=== PATIENT | male | born 1955 | race African-American/Black ===

== ENCOUNTER 2017-05-12 08:03 | Outpatient (CLI) | payer OTHER ==
--- NOTE | 2017-05-12 09:31 | PRG ---
DATE OF SERVICE: 05/12/2017 HISTORY: Mr. Brian Arambula is a very pleasant 61-year-old gentleman who presents to the Wound C enter for evaluation of an ulceration of the right lateral lower leg. The patient states that he is still utilizing his lymphedema pump at home. The patient states that the home health nurse that [facility] cares for him is on maternity leave. He states that he has not been receiving dressing change s as previously prescribed. The patient has no other complaints today. He denies any fever or chil ls. PHYSICAL EXAMINATION: VITAL SIGNS: Temperature 97.9, pulse 59, respirations 18, blood pressure 130/62, Accu-Chek 127. EXTREMITIES: The ulceration over the right lateral lower leg has recurred. The dimensions of the w ound are approximately 1.9 x 1.5 cm. Granulation tissue is present within the wound margins. No pu rulent drainage is associated with the wound. No erythema of the skin surrounding the wound is pres ent. No maceration of the skin of the periwound is noted. A dorsalis pedis pulse is palpable on th e right. No significant edema of the right foot or lower leg is present on exam today. ASSESSMENT AND PLAN: 1. Chronic venous hypertension with ulcer. As stated above, the ulceration has recurred. Patholog y from punch biopsy on 04/14/2016, returned stasis dermatitis with ulceration. The patient has been asked to continue to utilize his lymphedema pump. Silvercel, Kerlix, and an Javier bandage followed b y the patient's compression garment will be applied to the ulceration today. I will see Mr. Merino on again in two weeks. Orders will be transmitted to Home Health for dressing changes of , Ker lix, and an Javier bandage, followed by the patient's compression garment 3 times per week after cleans ing and irrigation. 2. Diabetes mellitus. The patient's Accu-Chek in clinic today is 127. The patient has been remind ed that for optimal wound healing, his blood glucoses should remain below 150. 3. Peripheral vascular disease. 4. Hypertension. 5. Arthritis.
== END 2017-05-12 08:04 | disposition home or self-care (01) ==
LOC: WCC 08:03
PROVIDERS: ATTEND Family Medicine
DX: I87.311 Chronic venous hypertension (idiopathic) with ulcer of right lower extremity (principal); E11.622 Type 2 diabetes mellitus with other skin ulcer; L97.919 Non-pressure chronic ulcer of unspecified part of right lower leg with unspecified severity; I73.9 Peripheral vascular disease, unspecified; M19.90 Unspecified osteoarthritis, unspecified site
CPT/HCPCS: 29581

== ENCOUNTER 2017-05-26 08:01 | Outpatient (CLI) | payer OTHER ==
--- NOTE | 2017-05-26 09:05 | PRG ---
DATE OF SERVICE: 05/26/2017 HISTORY: Mr. Brian Arambula is a very pleasant 61-year-old gentleman who presents to the Wound C enter for evaluation of an ulceration of the right lateral lower leg. The patient states that the [facility] nurse that usually cares for him is still on maternity leave. Again, he states that he h as not been receiving dressing changes as previously prescribed. The patient has no other complaint s today. He denies any fever or chills. PHYSICAL EXAMINATION: VITAL SIGNS: Temperature 98.0, pulse 54, respirations 20, blood pressure 146/70. Accu-Chek 148. EXTREMITIES: The ulceration over the right lateral lower leg has decreased in its dimensions. The dimensions of the wound are approximately 1.6 x 1.5 cm. The dimensions of the wound at the time of the patient's last visit were approximately 1.9 x 1.5 cm. Granulation tissue is present within the wound margins. No purulent drainage is associated with the wound. No erythema of the skin surround ing the wound is present. No maceration of the skin of the periwound is noted. A dorsalis pedis pu lse is palpable on the right. No significant edema of the right foot or lower leg is present on exa m today. ASSESSMENT AND PLAN: 1. Chronic venous hypertension with ulcer. As stated above, the ulceration has decreased in its di mensions. Pathology from punch biopsy on 04/14/2016 returned stasis dermatitis with ulceration. Th e patient has been asked to continue to utilize his lymphedema pump, Silvercel, Kerlix, and an Javier b andage, followed by the patient's compression garment will be applied to the ulceration today. I wi ll see Mr. Arambula again in two weeks. Orders will be transmitted to Home Health for dressing julio césar nges of Silvercel, Kerlix, and an Javier bandage, followed by the patient's compression garment 3 times per week after cleansing and irrigation. 2. Diabetes mellitus. The patient's Accu-Chek in clinic today is 148. The patient has been remind ed that for optimal wound healing, his blood glucoses should remain below 150. 3. Peripheral vascular disease. 4. Hypertension. 5. Arthritis.
[2017-05-26] MEDS ORDERED: Lidocaine 2% Jelly 5 ML TUBE ONE (17:27)
[2017-05-26] MEDS ORDERED: Sodium Chloride 0.9% 15 ML NEB ONE (17:27)
== END 2017-05-26 08:02 | disposition home or self-care (01) ==
LOC: WCC 08:01
PROVIDERS: ATTEND Family Medicine
DX: I87.311 Chronic venous hypertension (idiopathic) with ulcer of right lower extremity (principal); E11.9 Type 2 diabetes mellitus without complications; I73.9 Peripheral vascular disease, unspecified; M19.90 Unspecified osteoarthritis, unspecified site; I10 Essential (primary) hypertension
CPT/HCPCS: 97602; A4218

== ENCOUNTER 2017-06-09 07:35 | Outpatient (CLI) | payer OTHER ==
--- NOTE | 2017-06-09 09:20 | PRG ---
DATE OF SERVICE: 06/09/2017 HISTORY: Mr. Brian Arambula is a very pleasant 61-year-old gentleman who presents to the Wound C enter for evaluation of an ulceration of the right lateral lower leg. Again, the patient states camilo t the home health nurse that usually cares for him is still on maternity leave. The patient has no other complaints today. He denies any fever or chills. PHYSICAL EXAMINATION: VITAL SIGNS: Temperature 98.0, pulse 68, respirations 18, blood pressure 145/73, Accu-Chek 176. EXTREMITIES: The ulceration over the right lateral lower leg measures approximately 1.9 x 1.5 cm. The dimensions of the wound at the time of the patient's last visit were approximately 1.6 x 1.5 cm. Granulation tissue is present within the wound margins. No purulent drainage is associated with navid salgado wound. No erythema of the skin surrounding the wound is present. No maceration of the skin of navid he periwound is noted. No significant edema of the right foot or lower leg is appreciated on today' s exam. ASSESSMENT AND PLAN: 1. Chronic venous hypertension with ulcer. Pathology from punch biopsy on 04/14/2016 returned lexus is dermatitis with ulceration. Silvercel, Kerlix, and an Javier bandage will be applied to the ulcerat ion today. I will see Mr. Arambula again in two weeks. Orders will be transmitted to Home Health for dressing changes of Silvercel, Kerlix, and an Javier bandage followed by the patient's compression garment 3 times per week after cleansing and irrigation. 2. Diabetes mellitus. The patient's Accu-Chek in clinic today is 176. The patient has been remind ed that for optimal wound healing, his blood glucoses should remain below 150. 3. Peripheral vascular disease. 4. Hypertension. 5. Arthritis.
[2017-06-09] MEDS ORDERED: Sodium Chloride 0.9% 15 ML NEB ONE (17:25)
== END 2017-06-09 07:36 | disposition home or self-care (01) ==
LOC: WCC 07:35
PROVIDERS: ATTEND Family Medicine
DX: I87.311 Chronic venous hypertension (idiopathic) with ulcer of right lower extremity (principal); E11.622 Type 2 diabetes mellitus with other skin ulcer; L97.919 Non-pressure chronic ulcer of unspecified part of right lower leg with unspecified severity; I73.9 Peripheral vascular disease, unspecified; I10 Essential (primary) hypertension; M19.90 Unspecified osteoarthritis, unspecified site
CPT/HCPCS: 29581; A4218

== ENCOUNTER 2017-07-21 08:03 | Outpatient (CLI) | payer OTHER ==
--- NOTE | 2017-07-21 09:11 | PRG ---
DATE OF SERVICE: 07/21/2017 HISTORY: Mr. Brian Arambula is a very pleasant 61-year-old gentleman who presents to the Wound Ce nter for evaluation of an ulceration of the right lateral lower leg. The patient states that the [facility] nurse that previously cared for him has returned from maternity leave. Mr. Arambula has no complaints today. He denies any fever or chills. PHYSICAL EXAMINATION: VITAL SIGNS: Temperature 98.2, pulse 60, respirations 16, blood pressure 129/76. Accu-Chek 147. EXTREMITIES: The ulceration over the right lateral lower leg measures approximately 2.5 x 1.9 cm. T he dimensions of the wound at the time of the patient's last visit were approximately 2.3 x 2.0 cm. Granulation tissue is present within the wound margins. No purulent drainage is associated with the wound. No erythema of the skin surrounding the wound is present. No maceration of the skin of the p eriwound is noted. No significant edema of the right foot or lower leg is appreciated on today's exa m. ASSESSMENT AND PLAN: 1. Chronic venous hypertension with ulcer. Pathology from punch biopsy on 04/14/2016 returned stasi s dermatitis with ulcerations. Adaptic, Kerlix, and an Javier bandage will be applied to the ulceration today. I will see Mr. Arambula again in four weeks. Orders will be transmitted to Home Health for dressing changes of Adaptic, Kerlix, and an Javier bandage 3 times per week after cleansing and irrigat ion. The patient has also been reminded to continue to use his pneumatic pump as previously prescrib ed. 2. Diabetes mellitus. The patient's Accu-Chek in clinic today is 147. The patient has been reminde d that for optimal wound healing, his blood glucoses should remain below 150. 3. Peripheral vascular disease. 4. Hypertension. 5. Arthritis.
== END 2017-07-21 08:04 | disposition home or self-care (01) ==
LOC: WCC 08:03
PROVIDERS: ATTEND Family Medicine
DX: I87.311 Chronic venous hypertension (idiopathic) with ulcer of right lower extremity (principal); E11.622 Type 2 diabetes mellitus with other skin ulcer; L97.919 Non-pressure chronic ulcer of unspecified part of right lower leg with unspecified severity; I73.9 Peripheral vascular disease, unspecified; M19.91 Primary osteoarthritis, unspecified site; I10 Essential (primary) hypertension
CPT/HCPCS: 97602

== ENCOUNTER 2017-08-19 08:01 | Outpatient (CLI) | payer OTHER ==
--- NOTE | 2017-08-19 09:27 | PRG ---
DATE OF SERVICE: 08/19/2017 HISTORY: Mr. Xochitl Arambula is a very pleasant 61-year-old gentleman who presents to the Wound Center for evaluation of an ulceration of the right lateral lower leg. The patient states that he is still receiving dressing changes with the assistance of Home Health. The patient states, however, that he has not been utilizing his pneumatic pump on a daily basis for treatment of the edema of his right lower extremity. The patient denies any fever or chills. PHYSICAL EXAMINATION: VITAL SIGNS: Temperature 98.2, pulse 71, respirations 18, blood pressure 153/ 71. Accu-Chek 174. EXTREMITIES: The ulceration over the right lateral lower leg measures approximately 1.9 x 2.5 cm. The dimensions of the wound at the time of the patient's last visit were also approximately 2.5 x 1.9 cm. Granulation tissue is present within the wound margins. No purulent drainage is associated with the wound. No erythema of the skin surrounding the wound is present. No maceration of the skin of the periwound is noted. A dorsalis pedis pulse is palpable on the right. Edema of the right foot and lower leg is present on exam today. ASSESSMENT AND PLAN: 1. Chronic venous hypertension with ulcer. Pathology from punch biopsy on returned stasis dermatitis with ulceration. Xeroform gauze, Kerlix, and an Javier bandage will be applied to the ulceration today. I will see Mr. Arambula again in four weeks. Orders will be transmitted to Home Health for dressing changes of Xeroform gauze or Adaptic, Kerlix, and an Javier bandage 3 times per week after cleansing and irrigation. The patient has been asked to utilize his pneumatic pump on a daily basis as previously prescribed. 2. Diabetes mellitus. The patient's Accu-Chek in clinic today is 174. The patient has been reminded that for optimal wound healing, his blood glucoses should remain below 150. 3. Peripheral vascular disease. 4. Hypertension. 5. Arthritis. MTDD
[2017-08-19] MEDS ORDERED: Sodium Chloride 0.9% 15 ML NEB ONE (12:00)
== END 2017-08-19 08:02 | disposition home or self-care (01) ==
LOC: WCC 08:01
PROVIDERS: ATTEND Family Medicine
DX: I87.311 Chronic venous hypertension (idiopathic) with ulcer of right lower extremity (principal); E11.622 Type 2 diabetes mellitus with other skin ulcer; L97.919 Non-pressure chronic ulcer of unspecified part of right lower leg with unspecified severity; I73.9 Peripheral vascular disease, unspecified; I10 Essential (primary) hypertension; M19.90 Unspecified osteoarthritis, unspecified site
CPT/HCPCS: 97602; A4218

== ENCOUNTER 2017-09-16 08:31 | Outpatient (CLI) | payer OTHER ==
--- NOTE | 2017-09-16 09:01 | PRG ---
DATE OF SERVICE: 09/16/2017 HISTORY: Mr. Xochitl Arambula is a very pleasant 61-year-old gentleman who presents to the Wound [facility] for evaluation of an ulceration of the right lateral lower leg. The patient states he is receivi ng dressing changes with the assistance of Home Health. Today, he states that he has been utilizing his pneumatic pump consistently for treatment of the edema of his right lower extremity. Mr. Merino on denies any fever or chills. PHYSICAL EXAMINATION: VITAL SIGNS: Temperature 97.9, pulse 70, respirations 18, blood pressure 137/63, Accu-Chek 221. EXTREMITIES: The ulceration over the right lateral lower leg measures approximately 1.8 x 2.1 cm. T he dimensions of the wound at the time of the patient's last visit were approximately 1.9 x 2.5 cm. Granulation tissue is present within the wound margins. No purulent drainage is associated with the wound. No erythema of the skin surrounding the wound is present. No maceration of the skin of the p eriwound is noted. ASSESSMENT AND PLAN: 1. Chronic venous hypertension with ulcer. The pathology from punch biopsy on 04/14/2016 returned s tasis dermatitis with ulceration. Xeroform gauze, Kerlix, and an Javier bandage will be applied to the ulceration today. Orders will be transmitted to Home Health for ABDs as needed at the time of dressi ng changes. I will see Mr. Arambula again in 4 weeks. Orders will be transmitted to Home Health fo r dressing changes of Xeroform gauze, ABDs, Kerlix, and an Javier bandage 3 times per week after cleansi ng and irrigation. Again, the patient has been asked to utilize his pneumatic pump for 45 minutes ea ch day for the right lower extremity as previously prescribed. 2. Diabetes mellitus. The patient's Accu-Chek in clinic today is 221. The patient has been reminde d that for optimal wound healing, his blood glucoses should remain below 150. 3. Peripheral vascular disease. 4. Hypertension. 5. Arthritis.
[2017-09-20] MEDS ORDERED: Sodium Chloride 0.9% 15 ML NEB ONE (16:24)
== END 2017-09-16 08:32 | disposition home or self-care (01) ==
LOC: WCC 08:31
PROVIDERS: ATTEND Family Medicine
DX: I87.311 Chronic venous hypertension (idiopathic) with ulcer of right lower extremity (principal); L97.919 Non-pressure chronic ulcer of unspecified part of right lower leg with unspecified severity; E11.622 Type 2 diabetes mellitus with other skin ulcer; I73.9 Peripheral vascular disease, unspecified; I10 Essential (primary) hypertension; M19.90 Unspecified osteoarthritis, unspecified site
CPT/HCPCS: 97602

== ENCOUNTER 2017-10-21 08:33 | Outpatient (CLI) | payer OTHER ==
--- NOTE | 2017-10-21 10:06 | PRG ---
DATE OF SERVICE: 10/21/2017 HISTORY: Mr. Xochitl Arambula is a very pleasant 61-year-old gentleman who presents to the Wound [facility] for evaluation of an ulceration of the right lateral lower leg. The patient states he is still r eceiving dressing changes with the assistance of Home Health. The patient states his ulceration wors ened in its appearance with the use of Xeroform at the time of dressing changes. The patient has no other complaints today. He denies any fever or chills. PHYSICAL EXAMINATION: VITAL SIGNS: Temperature 97.6, pulse 65, respirations 19, blood pressure 175/79. Accu-Chek 222. EXTREMITIES: The ulceration over the right lateral lower leg measures approximately 2.5 x 1.6 cm. T he dimensions of the wound at the time of the patient's last visit were approximately 1.8 x 2.1 cm. Granulation tissue is present within the wound margins. No purulent drainage is associated with the wound. No erythema of the skin surrounding the wound is present. No maceration of the skin of the p eriwound is noted. ASSESSMENT AND PLAN: 1. Chronic venous hypertension with ulcer. Pathology from punch biopsy on 04/14/2016 returned stasi s dermatitis with ulceration. Xeroform gauze, ABD, Kerlix, and an Javier bandage will be applied to the ulceration today. Orders will be transmitted to Home Health for dressing changes of Xeroform gauze, ABDs, Kerlix, and an Javier bandage 3 times per week after cleansing and irrigation. I will see Mr. Malka nelson again in four weeks. Again, the patient has been asked to utilize his pneumatic pump for 45 minutes each day for the right lower extremity as previously prescribed. 2. Diabetes mellitus. The patient's Accu-Chek in clinic today is 222. The patient has been reminde d that for optimal wound healing, his blood glucoses should remain below 150. 3. Peripheral vascular disease. 4. Hypertension. 5. Arthritis.
== END 2017-10-21 08:34 | disposition home or self-care (01) ==
LOC: WCC 08:33
PROVIDERS: ATTEND Family Medicine
DX: I87.311 Chronic venous hypertension (idiopathic) with ulcer of right lower extremity (principal); E11.9 Type 2 diabetes mellitus without complications; I73.9 Peripheral vascular disease, unspecified; M19.90 Unspecified osteoarthritis, unspecified site; I10 Essential (primary) hypertension
CPT/HCPCS: 97602

== ENCOUNTER 2017-11-18 08:07 | Outpatient (CLI) | payer OTHER ==
--- NOTE | 2017-11-18 09:04 | PRG ---
DATE OF SERVICE: 11/18/2017 HISTORY: Mr. Xochitl Arambula is a very pleasant 62-year-old gentleman who presents to the Wound [facility] for evaluation of an ulceration of the right lateral lower leg. The patient states he is still r eceiving dressing changes with the assistance of Home Health. Since the patient's last visit, Mr. Malka nelson has been receiving dressing changes of Silvercel, ABD, Kerlix, and an Javier bandage 3 times per week after cleansing and irrigation. Mr. Arambula has no complaints today. He denies any fever or chills. PHYSICAL EXAMINATION: VITAL SIGNS: Temperature 97.8, pulse 59, respirations 18, blood pressure 149/70. Accu-Chek 134. EXTREMITIES: The ulceration over the right lateral lower leg measures approximately 2.0 x 1.2 cm. T he dimensions of the wound at the time of the patient's visit on 10/21/2017 were approximately 2.5 x 1.6 cm. Granulation tissue is present within the wound margins. No purulent drainage is associated with the wound. No erythema of the skin surrounding the wound is present. No maceration of the skin of the periwound is noted. ASSESSMENT AND PLAN: 1. Chronic venous hypertension with ulcer. Pathology from punch biopsy on 04/14/2016 returned stasi s dermatitis with ulceration. Silvercel, ABD, Kerlix, and an Javier bandage will be applied to the ulce ration today. Orders will be transmitted to Home Health for dressing changes of Silvercel, ABD, Kerl ix, and an Javier bandage 3 times per week after cleansing and irrigation. I will see Mr. Arambula aga in in 4 weeks. 2. Diabetes mellitus. The patient's Accu-Chek in clinic today is 134. The patient has been reminde d that for optimal wound healing, his blood glucoses should remain below 150. 3. Peripheral vascular disease. 4. Hypertension. 5. Arthritis.
== END 2017-11-18 08:08 | disposition home or self-care (01) ==
LOC: WCC 08:07
PROVIDERS: ATTEND Family Medicine
DX: I87.311 Chronic venous hypertension (idiopathic) with ulcer of right lower extremity (principal); E11.622 Type 2 diabetes mellitus with other skin ulcer; L97.919 Non-pressure chronic ulcer of unspecified part of right lower leg with unspecified severity; I73.9 Peripheral vascular disease, unspecified; M19.90 Unspecified osteoarthritis, unspecified site
CPT/HCPCS: 97602

== ENCOUNTER 2017-12-16 07:56 | Outpatient (CLI) | payer OTHER ==
--- NOTE | 2017-12-16 09:10 | PRG ---
DATE OF SERVICE: 12/16/2017 HISTORY: Mr. Xohcitl Arambula is a very pleasant 62-year-old gentleman who presents to the Wound [facility] for evaluation of an ulceration of the right lateral lower leg. The patient is still receiving d ressing changes with the assistance of Home Health. At the time of the patient's last visit, Mr. Celestine webber was placed on dressing changes of Silvercel, ABD, Kerlix, and an Javier bandage 3 times per week after cleansing and irrigation. Mr. Arambula has no complaints today. He denies any fever or chill s. PHYSICAL EXAMINATION: VITAL SIGNS: Temperature 97.6, pulse 71, respirations 16, blood pressure 124/61, Accu-Chek 152. EXTREMITIES: The ulceration over the right lateral lower leg measures approximately 1.5 x 0.9 cm. T he dimensions of the wound at the time of the patient's visit on 11/18/2017 were approximately 2.0 x 1.2 cm. Granulation tissue is present within the wound margins. No purulent drainage is associated with the wound. No erythema of the skin surrounding the wound is present. No maceration of the skin of the periwound is noted. A dorsalis pedis pulse is palpable on the right. No significant edema o f the right foot or lower leg is present on exam today. ASSESSMENT AND PLAN: 1. Chronic venous hypertension with ulcer. Pathology from punch biopsy on 04/14/2016 returned stasi s dermatitis with ulceration. Silvercel, ABD, Kerlix, and an Javier bandage will be applied to the ulce ration today. Orders will be transmitted to Home Health for dressing changes of Silvercel, ABD, Kerl ix, and an Javier bandage 3 times per week after cleansing and irrigation. I will see Mr. Arambula aga in in four weeks. 2. Diabetes mellitus. The patient's Accu-Chek in clinic today is 152. The patient has been reminde d that for optimal wound healing, his blood glucoses should remain below 150. 3. Peripheral vascular disease. 4. Hypertension. 5. Arthritis. 6. Lymphedema tarda. The patient states he has been utilizing his pneumatic pump at home for right lower extremity lymphedema.
[2017-12-16] MEDS ORDERED: Sodium Chloride 0.9% 15 ML NEB ONE (15:29)
== END 2017-12-16 07:57 | disposition home or self-care (01) ==
LOC: WCC 07:56
PROVIDERS: ATTEND Family Medicine
DX: I87.311 Chronic venous hypertension (idiopathic) with ulcer of right lower extremity (principal); L97.919 Non-pressure chronic ulcer of unspecified part of right lower leg with unspecified severity; E11.40 Type 2 diabetes mellitus with diabetic neuropathy, unspecified; I10 Essential (primary) hypertension; M19.90 Unspecified osteoarthritis, unspecified site; I89.0 Lymphedema, not elsewhere classified
CPT/HCPCS: 29581; A4218

== ENCOUNTER 2018-02-02 07:57 | Outpatient (CLI) | payer OTHER ==
--- NOTE | 2018-02-02 08:59 | PRG ---
DATE OF SERVICE: 02/02/2018 HISTORY: Mr. Xochitl Arambula is a very pleasant 62-year-old gentleman who presents to the Wound [facility] for evaluation of an ulceration of the right lateral lower leg. The patient states he continues to receive dressing changes with the assistance of Home Health. Since the patient's last visit, Mr. Arambula has been receiving dressing changes of Xeroform gauze, ABD, Kerlix, and an Javier bandage for his right lateral lower leg ulceration. The patient has no complaints today. He denies any fever or chills. PHYSICAL EXAMINATION: VITAL SIGNS: Temperature 97.6, pulse 63, respirations 18, blood pressure 140/66. Accu-Chek 188. EXTREMITIES: The ulceration over the right lateral lower leg has divided into 2 ulcerations which me asure 0.8 x 1.0 cm and 0.8 x 0.7 cm. Granulation tissue is present within the margins of each wound. No purulent drainage is associated with either wound. No erythema of the skin surrounding either w ound is present. No maceration of the skin of the periwound of either wound is noted. A dorsalis pe dis pulse is palpable on the right. No significant edema of the right foot or lower leg is present o n exam today. ASSESSMENT AND PLAN: 1. Chronic venous hypertension with ulcer. Pathology from punch biopsy on 04/14/2016 returned stasi s dermatitis with ulceration. Xeroform gauze, ABD, Kerlix, and an Javier bandage will be applied to the ulceration today. Orders will be transmitted to Home Health for dressing changes of Xeroform gauze, ABD, Kerlix, and an Javier bandage 3 times per week after cleansing and irrigation. I will see Mr. Celestine webber again in 4 weeks. 2. Diabetes mellitus. The patient's Accu-Chek in clinic today is 188. The patient has been reminde d that for optimal wound healing, his blood glucoses should remain below 150. 3. Peripheral vascular disease. 4. Hypertension. 5. Arthritis. 6. Lymphedema tarda. The patient states he is still utilizing his pneumatic pump at home for right lower extremity lymphedema.
[2018-02-03] MEDS ORDERED: Lidocaine 2% Jelly 5 ML TUBE ONE (18:51)
[2018-02-03] MEDS ORDERED: Sodium Chloride 0.9% 15 ML NEB ONE (18:51)
== END 2018-02-02 07:58 | disposition home or self-care (01) ==
LOC: WCC 07:57
PROVIDERS: ATTEND Family Medicine
DX: I87.311 Chronic venous hypertension (idiopathic) with ulcer of right lower extremity (principal); E11.622 Type 2 diabetes mellitus with other skin ulcer; L97.919 Non-pressure chronic ulcer of unspecified part of right lower leg with unspecified severity; I73.9 Peripheral vascular disease, unspecified; M19.90 Unspecified osteoarthritis, unspecified site; I89.0 Lymphedema, not elsewhere classified
CPT/HCPCS: A4218

== ENCOUNTER 2018-03-02 08:09 | Outpatient (CLI) | payer OTHER ==
--- NOTE | 2018-03-02 10:14 | PRG ---
DATE OF SERVICE: 03/02/2018 HISTORY: Mr. Xochitl Arambula is a very pleasant 62-year-old gentleman who presents to the Wound [facility] for evaluation of an ulceration of the right lateral lower leg. The patient continues to receive dressing changes with the assistance of Home Health. Since the patient's last visit, Mr. Arambula has been receiving dressing changes of Xeroform gauze, ABD, Kerlix, and an Javier bandage for his right lateral lower leg ulceration. Mr. Arambula has no complaints today. He denies any fever or chills. PHYSICAL EXAMINATION: VITAL SIGNS: Temperature 97.9, pulse 65, respirations 21, blood pressure 147/72. Accu-Chek 175. EXTREMITIES: An ulceration over the right lateral lower leg is present which measures approximately 1.7 x 2.0 cm. Granulation tissue was present within the wound margins. No purulent drainage is asso ciated with the wound. No erythema of the skin surrounding the wound is present. No maceration of t he skin of the periwound is noted. A dorsalis pedis pulse is faintly palpable on the right. No sign ificant edema of the right foot or lower leg is present on exam today. ASSESSMENT AND PLAN: 1. Chronic venous hypertension with ulcer. Pathology from punch biopsy on 04/14/2016 returned stasi s dermatitis with ulceration. Xeroform gauze, ABD, Kerlix, and an Javier bandage will be applied to the ulceration today. Orders will be transmitted to Home Health for dressing changes of Xeroform gauze, ABD, Kerlix, and an Javier bandage 3 times per week after cleansing and irrigation. I will see Mr. Celestine webber again in 4 weeks. 2. Diabetes mellitus. The patient's Accu-Chek in clinic today is 175. The patient has been reminde d that for optimal wound healing, his blood glucoses should remain below 150. 3. Peripheral vascular disease. 4. Hypertension. 5. Arthritis. 6. Lymphedema tarda. The patient previously stated that he is utilizing his pneumatic pump at home for right lower extremity lymphedema.
== END 2018-03-02 08:10 | disposition home or self-care (01) ==
LOC: WCC 08:09
PROVIDERS: ATTEND Family Medicine
DX: I87.311 Chronic venous hypertension (idiopathic) with ulcer of right lower extremity (principal); E11.622 Type 2 diabetes mellitus with other skin ulcer; L97.919 Non-pressure chronic ulcer of unspecified part of right lower leg with unspecified severity; E11.51 Type 2 diabetes mellitus with diabetic peripheral angiopathy without gangrene; I10 Essential (primary) hypertension; M19.90 Unspecified osteoarthritis, unspecified site; I89.0 Lymphedema, not elsewhere classified
CPT/HCPCS: 97602

== ENCOUNTER 2018-03-30 07:41 | Outpatient (CLI) | payer OTHER ==
--- NOTE | 2018-03-30 09:30 | PRG ---
DATE OF SERVICE: 03/30/2018 HISTORY: Mr. Xochitl Arambula is a very pleasant 62-year-old gentleman who presents to the Wound [facility] for evaluation of an ulceration of the right lateral lower leg. The patient is still receiving d ressing changes with the assistance of Home Health. The patient states that he has been receiving dr michael changes of Xeroform gauze, ABD, Kerlix, and an Javier bandage for his right lateral lower leg ulc eration. Mr. Arambula has no complaints today. He denies any fever or chills. PHYSICAL EXAMINATION: VITAL SIGNS: Temperature 98.0, pulse 62, respirations 22, blood pressure 165/77, Accu-Chek 192. EXTREMITIES: An ulceration over the right lateral lower leg is present which measures approximately 1.7 x 1.5 cm. The dimensions of the wound at the time of the patient's last visit were approximately 1.7 x 2.0 cm. Granulation tissue is present within the wound margins. No purulent drainage is asso ciated with the wound. No erythema of the skin surrounding the wound is present. No maceration of t he skin of the periwound is noted. No significant edema of the right foot or lower leg is present on exam today. ASSESSMENT AND PLAN: 1. Chronic venous hypertension with ulcer. Pathology from punch biopsy on 04/14/2016 returned stasi s dermatitis with ulceration. Xeroform gauze, ABD, Kerlix, and an Javier bandage will be applied to the ulceration today. Orders will again be transmitted to Home Health for dressing changes of Xeroform gauze, ABD, Kerlix, and an Javier bandage 3 times per week after cleansing and irrigation. I will see Peg Arambula again in four weeks. 2. Diabetes mellitus. The patient's Accu-Chek in clinic today is 192. The patient has been reminde d that for optimal wound healing, his blood glucoses should remain below 150. 3. Peripheral vascular disease. 4. Hypertension. 5. Arthritis. 6. Lymphedema tarda. The patient again states that he is utilizing his pneumatic pump at home for r ight lower extremity lymphedema on a consistent basis.
[2018-03-30] MEDS ORDERED: Sodium Chloride 0.9% 15 ML NEB ONE (17:49)
== END 2018-03-30 07:42 | disposition home or self-care (01) ==
LOC: WCC 07:41
PROVIDERS: ATTEND Family Medicine
DX: I87.311 Chronic venous hypertension (idiopathic) with ulcer of right lower extremity (principal); E11.622 Type 2 diabetes mellitus with other skin ulcer; L97.919 Non-pressure chronic ulcer of unspecified part of right lower leg with unspecified severity; I10 Essential (primary) hypertension; M19.90 Unspecified osteoarthritis, unspecified site; I89.0 Lymphedema, not elsewhere classified
CPT/HCPCS: A4218

== ENCOUNTER 2018-05-09 07:40 | Outpatient (CLI) | payer OTHER ==
--- NOTE | 2018-05-09 08:40 | PRG ---
DATE OF SERVICE: 05/09/2018 HISTORY: Mr. Xochitl Arambula is a very pleasant 62-year-old gentleman who presents to the Wound [facility] for evaluation of an ulceration of the right lateral lower leg. The patient states he is still r eceiving dressing changes with the assistance of Home Health. The patient states that his home healt h nurse discontinued the dressing changes of Xeroform gauze when his ulceration worsened in its appea caitie. The patient has no other complaints today. He denies any fever or chills. PHYSICAL EXAMINATION: VITAL SIGNS: Temperature 98.1, pulse 64, respirations 18, blood pressure 156/80. Accu-Chek 257. EXTREMITIES: Two ulcerations over the right lateral lower leg are present, which measure approximate ly 1.9 x 2.2 cm and 1.8 x 2.7 cm. No purulent drainage is associated with either wound. No erythema of the skin surrounding either wound is present. No significant edema of the right foot or lower le g is present on exam today. ASSESSMENT AND PLAN: 1. Chronic venous hypertension with ulcers. Pathology from punch biopsy on 04/14/2016 returned lexus is dermatitis with ulceration. Hydrofera Blue followed by an ABD, Kerlix, and JAVIER will be applied to the ulcerations today. Orders will be transmitted to Home Health for dressing changes of Hydrofera Blue followed by an ABD, Kerlix, and an Javier bandage 3 times per week after cleansing and irrigation. I will see Mr. Arambula again in four weeks. 2. Diabetes mellitus. The patient's Accu-Chek in clinic today is 257. The patient has been reminde d that for optimal wound healing, his blood glucoses should remain below 150. 3. Peripheral vascular disease. 4. Hypertension. 5. Arthritis. 6. Lymphedema tarda. The patient has a pneumatic pump for treatment of right lower extremity lymphe alejo.
[2018-05-09] MEDS ORDERED: Sodium Chloride 0.9% 15 ML NEB ONE (09:00)
== END 2018-05-09 07:41 | disposition home or self-care (01) ==
LOC: WCC 07:40
PROVIDERS: ATTEND Family Medicine
DX: E11.622 Type 2 diabetes mellitus with other skin ulcer (principal); I87.311 Chronic venous hypertension (idiopathic) with ulcer of right lower extremity; L97.919 Non-pressure chronic ulcer of unspecified part of right lower leg with unspecified severity; I10 Essential (primary) hypertension; M19.90 Unspecified osteoarthritis, unspecified site; I89.0 Lymphedema, not elsewhere classified
CPT/HCPCS: 36416; A4218

== ENCOUNTER 2018-06-06 08:04 | Outpatient (CLI) | payer OTHER ==
--- NOTE | 2018-06-06 08:58 | PRG ---
DATE OF SERVICE: 06/06/2018 HISTORY: Mr. Xochitl Arambula is a very pleasant 62-year-old gentleman who presents to the [facility] for evaluation of multiple ulcerations of the right lateral lower leg. The patient states he is still receiving dressing changes with the assistance of Home Health. The patient states that as oppo sed to one ulceration of the right lateral lower leg, he now has multiple ulcerations of the right la teral lower leg. The patient denies any fever or chills. PHYSICAL EXAMINATION: VITAL SIGNS: Temperature 97.6, pulse 68, respirations 18, blood pressure 165/81. Accu-Chek 251. EXTREMITIES: Multiple ulcerations over the right lateral lower leg are present which measure approxi mately 2.3 x 3.0, 2.9 x 2.9 cm and 1.7 x 3.0 cm. No purulent drainage is associated with any of the wounds. No erythema of the skin surrounding any of the wounds is present. No maceration of the skin of the periwound of any of the wounds is noted. No significant edema of the right foot or lower leg is present on exam today. ASSESSMENT AND PLAN: 1. Chronic venous hypertension with ulcers. Pathology from punch biopsy on 04/14/2016 returned lexus is dermatitis with ulceration. Hydrofera Blue will be discontinued. Dressing changes of Medihoney, 4 x 4s, ABDs, Kerlix, and an Javier bandage will be applied to the ulcerations today. Orders will be tr ansmitted to Home Health for the preceding dressing changes 3 times per week after cleansing and irri gation. I will see Mr. Arambula again in 4 weeks. 2. Diabetes mellitus. The patient's Accu-Chek in clinic today is 251. The patient has been reminde d that for optimal wound healing, his blood glucoses should remain below 150. 3. Peripheral vascular disease. 4. Hypertension. 5. Arthritis. 6. Lymphedema tarda. The patient has a pneumatic pump for treatment of right lower extremity lymphe alejo.
== END 2018-06-06 08:05 | disposition home or self-care (01) ==
LOC: WCC 08:04
PROVIDERS: ATTEND Family Medicine
DX: I87.311 Chronic venous hypertension (idiopathic) with ulcer of right lower extremity (principal); E11.622 Type 2 diabetes mellitus with other skin ulcer; L97.919 Non-pressure chronic ulcer of unspecified part of right lower leg with unspecified severity; I73.9 Peripheral vascular disease, unspecified; I10 Essential (primary) hypertension; M19.90 Unspecified osteoarthritis, unspecified site; I89.0 Lymphedema, not elsewhere classified

== ENCOUNTER 2018-07-20 07:26 | Outpatient (CLI) | payer OTHER ==
--- NOTE | 2018-07-20 09:36 | PRG ---
DATE OF SERVICE: 07/20/2018 HISTORY: Mr. Xochitl Arambula is a very pleasant 62-year-old gentleman, who presents to the Wound Center for evaluation of multiple ulcerations of the right lateral lower leg. The patient continues to receive dressing changes with the assistance of Home Health. Although, the patient was placed on dressing changes of Medihoney. Medihoney was discontinued because of significant drainage associated with his right lateral lower leg ulcerations. The patient has no other complaints today. He denies any fever or chills. PHYSICAL EXAMINATION: VITAL SIGNS: Temperature 98.2, pulse 68, respirations 17, blood pressure 139/79. Accu-Chek 178. EXTREMITIES: Multiple ulcerations over the right lateral lower leg are present, which measure approximately 5.9 x 2.5 cm, 3.0 x 1.7 cm, and 3.0 x 1.5 cm. Green discoloration of the wound bed is noted within the margins of one of the ulcerations. No purulent drainage is associated with any of the wounds. No erythema of the skin surrounding any of the wounds is present. No maceration of the skin of the periwound of any of the wounds is noted. A dorsalis pedis pulse is palpable on the right. No significant edema of the right foot or lower leg is present on exam today. ASSESSMENT AND PLAN: 1. Chronic venous hypertension with ulcers. Pathology from punch biopsy on 04/14/2016 returned stasis dermatitis with ulceration. Dressing changes of Xeroform gauze, ABDs, Kerlix, and an Javier bandage will be initiated today. These dressing changes are to be performed 3 times per week after cleansing and irrigation with the assistance of Home Health. I will see Mr. Arambula again in 4 weeks. 2. Diabetes mellitus. The patient's Accu-Chek in clinic today is 178. The patient has been reminded that for optimal wound healing, his blood glucoses should remain below 150. 3. Peripheral vascular disease. 4. Hypertension. 5. Arthritis. 6. Lymphedema tarda. The patient has a pneumatic pump for treatment of right lower extremity lymphedema. Job ID: [id number]
== END 2018-07-20 07:27 | disposition home or self-care (01) ==
LOC: WCC 07:26
PROVIDERS: ATTEND Family Medicine
DX: I87.311 Chronic venous hypertension (idiopathic) with ulcer of right lower extremity (principal); E11.622 Type 2 diabetes mellitus with other skin ulcer; L97.919 Non-pressure chronic ulcer of unspecified part of right lower leg with unspecified severity; I73.9 Peripheral vascular disease, unspecified; M19.90 Unspecified osteoarthritis, unspecified site; I89.0 Lymphedema, not elsewhere classified; I10 Essential (primary) hypertension

== ENCOUNTER 2018-08-22 07:44 | Outpatient (CLI) | payer OTHER ==
--- NOTE | 2018-08-22 09:06 | PRG ---
DATE OF SERVICE: SUBJECTIVE: Mr. Xochitl Arambula is a very pleasant 62-year-old gentleman, who presents to the Wound Center for evaluation of multiple ulcerations of the right lateral lower leg. Since the patient's last visit, Mr. Arambula has been receiving dressing changes of Xeroform gauze for the right lateral lower leg ulcerations with the assistance of Home Health. Mr. Arambula has no complaints today. He denies any fever or chills. PHYSICAL EXAMINATION: VITAL SIGNS: Temperature 98.1, pulse 68, respirations 19, and blood pressure 165/77. EXTREMITIES: Three ulcerations over the right lateral lower leg are present within an area which measures approximately 8.0 x 5.1 cm. Granulation tissue is present within the margins of each wound. No purulent drainage is associated with any of the wounds. No erythema of the skin surrounding any of the wounds is present. No maceration of the skin of the periwound of any of the wounds is noted. A dorsalis pedis pulse is palpable on the right. No significant edema of the right foot or lower leg is present on exam today. ASSESSMENT AND PLAN: 1. Chronic venous hypertension with ulcers. Pathology from punch biopsy on 04/14/2016 returned stasis dermatitis with ulceration. Dressing changes of Xeroform gauze, ABD, Kerlix and an Javier bandage will be continued 3 times per week after cleansing and irrigation with the assistance of Home Health. I will see Mr. Arambula again in 4 weeks. 2. Diabetes mellitus. Accu-Cheks will be obtained at the time of the patient's clinic visits. The patient has been reminded that for optimal wound healing his blood glucoses should remain below 150. 3. Peripheral vascular disease. 4. Hypertension. 5. Arthritis. 6. Lymphedema tarda. The patient has a pneumatic pump for treatment of right lower extremity lymphedema. Job ID: [id number]
[2018-08-22] MEDS ORDERED: Sodium Chloride 0.9% 15 ML NEB ONE (11:11)
== END 2018-08-22 07:45 | disposition home or self-care (01) ==
LOC: WCC 07:44
PROVIDERS: ATTEND Family Medicine
DX: I87.311 Chronic venous hypertension (idiopathic) with ulcer of right lower extremity (principal); E11.621 Type 2 diabetes mellitus with foot ulcer; L97.919 Non-pressure chronic ulcer of unspecified part of right lower leg with unspecified severity; I73.9 Peripheral vascular disease, unspecified; I10 Essential (primary) hypertension; I89.0 Lymphedema, not elsewhere classified; M19.90 Unspecified osteoarthritis, unspecified site
CPT/HCPCS: 97602; A4218

== ENCOUNTER 2018-09-19 09:30 | Outpatient (CLI) | payer OTHER ==
--- NOTE | 2018-09-19 09:04 | PRG ---
DATE OF SERVICE: 09/19/2018 HISTORY: Mr. Xochitl Arambula is a very pleasant 62-year-old gentleman, who presents to the Wound Center for evaluation of multiple ulcerations of the right lateral lower leg. Since the patient's last visit, Mr. Arambula has been receiving dressing changes of Xeroform gauze for the right lateral lower leg ulcerations with the assistance of Home Health. The patient has no complaints today. He denies any fever or chills. PHYSICAL EXAMINATION: VITAL SIGNS: Temperature 98.1, pulse 70, respirations 18, blood pressure 167/74. Accu-Chek 185. EXTREMITIES: Three ulcerations are present over the right lateral lower leg. The two largest ulcerations measure approximately 4.2 x 2.5 cm and 2.5 x 1.0 cm. Granulation tissue is present within the margins of each wound. No purulent drainage is associated with any of the wounds. No erythema of the skin surrounding any of the wounds is present. No maceration of the skin of the periwound of any of the wounds is noted. A dorsalis pedis pulse is palpable on the right. No significant edema of the right foot or lower leg is present on exam today. ASSESSMENT AND PLAN: 1. Chronic venous hypertension with ulcers. Pathology from punch biopsy on 04/14/2016 returned stasis dermatitis with ulceration. Dressing changes of Xeroform gauze and ABD, Kerlix, and an Javier bandage will be continued 3 times per week after cleansing and irrigation with the assistance of Home Health. I will see Mr. Arambula again in 4 weeks. 2. Diabetes mellitus. The patient's Accu-Chek in clinic today is 185. The patient has been reminded that for optimal wound healing, his blood glucoses should remain below 150. 3. Peripheral vascular disease. 4. Hypertension. 5. Arthritis. 6. Lymphedema tarda. The patient has a pneumatic pump for treatment of right lower extremity lymphedema. Job ID: [id number]
[2018-09-19] MEDS ORDERED: Sodium Chloride 0.9% 15 ML NEB ONE (15:00)
== END 2018-09-19 09:31 | disposition home or self-care (01) ==
LOC: WCC 09:30
PROVIDERS: ATTEND Family Medicine
DX: I87.311 Chronic venous hypertension (idiopathic) with ulcer of right lower extremity (principal); E11.622 Type 2 diabetes mellitus with other skin ulcer; L97.919 Non-pressure chronic ulcer of unspecified part of right lower leg with unspecified severity; I73.9 Peripheral vascular disease, unspecified; I10 Essential (primary) hypertension; M19.90 Unspecified osteoarthritis, unspecified site; I89.0 Lymphedema, not elsewhere classified
CPT/HCPCS: 97602; A4218

== ENCOUNTER 2018-11-21 09:35 | Outpatient (CLI) | payer MEDICAID ==
--- NOTE | 2018-11-21 10:39 | PRG ---
DATE OF SERVICE: 11/21/2018 HISTORY: Mr. Xochitl Arambula is a very pleasant 63-year-old gentleman, who presents to the Wound Center for evaluation of multiple ulcerations of the right lateral lower leg. Since the patient's last visit, Mr. Arambula has been receiving dressing changes of Xeroform gauze for the right lateral lower leg ulcerations with the assistance of Home Health. The patient has no complaints today. He denies any fever or chills. PHYSICAL EXAMINATION: VITAL SIGNS: Temperature 97.6, pulse 68, respirations 18, blood pressure 178/100. Accu-Chek 113. EXTREMITIES: Two ulcerations are present over the right lateral lower leg, which measures approximately 3.1 x 2.4 cm and 1.0 x 0.5 cm. Granulation tissue is present within the margins of each wound. No purulent drainage is associated with either wound. No erythema of the skin surrounding either wound is present. No maceration of the skin of the periwound of either wound is noted. Dorsalis pedis pulse is palpable on the right. Hnzm-bv-jlrhbodu edema of the right foot and lower leg is present on exam today. ASSESSMENT AND PLAN: 1. Chronic venous hypertension with ulcers. Pathology from punch biopsy on 04/14/2016 returned stasis dermatitis with ulceration. Dressing changes of Xeroform gauze, ABD, Kerlix, and an Javier bandage will be continued 3 times per week after cleansing and irrigation with the assistance of Home Health. The patient states he will contact the clinic in order to schedule his followup appointment. 2. Diabetes mellitus. The patient's Accu-Chek in clinic today is 113. The patient has been reminded that for optimal wound healing, his blood glucoses should remain below 150. 3. Peripheral vascular disease. 4. Hypertension. 5. Arthritis. 6. Lymphedema tarda. The patient has pneumatic pump for treatment of right lower extremity lymphedema. Job ID: [id number]
[2018-11-21] MEDS ORDERED: Sodium Chloride 0.9% 15 ML NEB ONE (18:00)
== END 2018-11-21 09:36 | disposition home or self-care (01) ==
LOC: WCC 09:35
PROVIDERS: ATTEND Family Medicine
DX: I87.311 Chronic venous hypertension (idiopathic) with ulcer of right lower extremity (principal); E11.622 Type 2 diabetes mellitus with other skin ulcer; L97.919 Non-pressure chronic ulcer of unspecified part of right lower leg with unspecified severity; I73.9 Peripheral vascular disease, unspecified; I10 Essential (primary) hypertension; M19.90 Unspecified osteoarthritis, unspecified site; I89.0 Lymphedema, not elsewhere classified
CPT/HCPCS: 97602; A4218

== ENCOUNTER 2018-11-30 07:47 | Outpatient (CLI) | payer MEDICARE, MEDICAID ==
--- NOTE | 2018-11-30 10:09 | PRG ---
DATE OF SERVICE: 11/30/2018 HISTORY: Mr. Xochitl Arambula is a very pleasant 63-year-old gentleman, who presents to the wound center for evaluation of multiple ulcerations of the right lateral lower leg. Since the patient's last visit, Mr. Arambula has been receiving dressing changes of Xeroform gauze for the right lateral lower leg ulcerations with the assistance of Home Health. The patient has no complaints today. He denies any fever or chills. He states that ankle-brachial indices were obtained at the time of his visit with Podiatry. He states that the results will be mailed to him. PHYSICAL EXAMINATION: VITAL SIGNS: Temperature 98.1, pulse 72, blood pressure 135/70, Accu-Chek 252. EXTREMITIES: Two ulcerations are present over the right lateral lower leg, which measure approximately 5.3 x 5.2 cm and 1.8 x 4.5 cm. Granulation tissue is present within the margins of each wound. No purulent drainage is associated with either wound. No erythema of the skin surrounding either wound is present. No maceration of the skin of the periwound of either wound is noted. Dorsalis pedis pulse is palpable on the right. Hqqb-cq-qvcyucld edema of the right foot and lower leg is present on exam today. ASSESSMENT AND PLAN: 1. Chronic venous hypertension with ulcers pathology from punch biopsy on 04/14/2016, returned stasis dermatitis with ulceration. Dressing changes of Xeroform gauze, an ABD, Kerlix, and an Javier bandage will be continued 3 times per week after cleansing and irrigation with the assistance of Home Health. Arrangements will be made for the patient to be seen in consultation by Dr. Ricardo Villalta for evaluation for right lower extremity arterial insufficiency. I will see Mr. Arambula again in 4 weeks or alternatively after evaluation by Dr. Ricardo Villalta, and any necessary treatment is complete. The patient understands and is in agreement with the preceding treatment plan. 2. Diabetes mellitus. The patient's Accu-Chek in clinic today is 252. The patient has been reminded that for optimal wound healing, his blood glucoses should remain below 150. 3. Peripheral vascular disease. 4. Hypertension. 5. Arthritis. 6. Lymphedema tarda. The patient has a pneumatic pump for treatment of right lower extremity lymphedema. Job ID: [id number]
[2018-11-30] MEDS ORDERED: Sodium Chloride 0.9% 15 ML NEB ONE (17:27)
== END 2018-11-30 07:48 | disposition home or self-care (01) ==
LOC: WCC 07:47
PROVIDERS: ATTEND Family Medicine
DX: I87.311 Chronic venous hypertension (idiopathic) with ulcer of right lower extremity (principal); E11.622 Type 2 diabetes mellitus with other skin ulcer; L97.919 Non-pressure chronic ulcer of unspecified part of right lower leg with unspecified severity; I89.0 Lymphedema, not elsewhere classified; M19.90 Unspecified osteoarthritis, unspecified site; I73.9 Peripheral vascular disease, unspecified
CPT/HCPCS: 97602; A4218

== ENCOUNTER 2019-01-16 13:35 | Outpatient (CLI) | payer MEDICARE, MEDICAID ==
--- NOTE | 2019-01-16 15:13 | PRG ---
DATE OF SERVICE: 01/16/2019 HISTORY: Mr. Xochitl Arambula is a very pleasant 63-year-old gentleman, who presents to the Wound Center for evaluation of 2 ulcerations of the right lower leg and a new ulceration at the left posterior lower leg. The patient states he has not had any home health visits for the past 2 weeks. He also states he has not heard from Cardiology in regard to his appointment for evaluation for right lower extremity arterial insufficiency. The patient has no other complaints today. He denies any fever or chills. OBJECTIVE: VITAL SIGNS: Temperature 97.7, pulse 75, respirations 19, and blood pressure 155/70. EXTREMITIES: Two ulcerations are present over the right lower leg, which measure approximately 3.8 x 2.5 cm and 2.0 x 4.0 cm. An ulceration over the left posterior lower leg is present, which measures approximately 3.0 x 7.0 cm. Granulation tissue is present within the margins of each wound. No purulent drainage is associated with any of the wounds. No erythema of the skin surrounding any of the wounds is present. No maceration of the skin of the periwound of any of the wounds is noted. A dorsalis pedis pulse is palpable on the right and on the left. Edema of the right and left feet and lower legs is present on today's exam. LABORATORY DATA: Accu-Chek 178. ASSESSMENT AND PLAN: 1. Chronic venous hypertension with ulcers. Pathology from punch biopsy on 04/14/2016 returned stasis dermatitis with ulceration. Dressing changes of Hydrofera Blue will be initiated today. These dressing changes are to be performed on a weekly basis after cleansing and irrigation with the assistance of Home Health. ABDs, Webril, and the 3M Coban 2 Layer Compression System will be applied in conjunction with the dressing changes of Hydrofera Blue. Arrangements will be made again for the patient to be seen in consultation by Dr. Ricardo Villalta for evaluation for right lower extremity arterial insufficiency. I will see Mr. Arambula again in 4 weeks. The patient understands and is in agreement with the preceding treatment plan. 2. Diabetes mellitus. The patient's Accu-Chek in clinic today is 178. The patient has been reminded that for optimal wound healing, his blood glucoses should remain below 150. 3. Peripheral vascular disease. 4. Hypertension. 5. Arthritis. 6. Lymphedema tarda. The patient has a pneumatic pump for treatment of lower extremity lymphedema. Job ID: [id number]
[2019-01-16] MEDS ORDERED: Sodium Chloride 0.9% 15 ML NEB ONE (18:00)
== END 2019-01-16 13:36 | disposition home or self-care (01) ==
LOC: WCC 13:35
PROVIDERS: ATTEND Family Medicine
DX: I87.311 Chronic venous hypertension (idiopathic) with ulcer of right lower extremity (principal); E11.622 Type 2 diabetes mellitus with other skin ulcer; L97.919 Non-pressure chronic ulcer of unspecified part of right lower leg with unspecified severity; I73.9 Peripheral vascular disease, unspecified; I10 Essential (primary) hypertension; I89.0 Lymphedema, not elsewhere classified; M19.90 Unspecified osteoarthritis, unspecified site
CPT/HCPCS: 36416; A4218

== ENCOUNTER 2019-02-13 14:51 | Outpatient (CLI) | payer MEDICARE, MEDICAID ==
--- NOTE | 2019-02-13 09:40 | PRG ---
DATE OF SERVICE: 02/13/2019 HISTORY: Mr. Xochitl Arambula is a very pleasant 63-year-old gentleman, who presents to the Wound Center for evaluation of 2 ulcerations of the right lower leg. The patient states that he missed his appointment with Dr. Villalta for evaluation for right lower extremity arterial insufficiency because of transportation difficulties. The patient states that he has rescheduled the appointment and is to be seen by Dr. Villalta on 03/06/2019 at 2:15 p.m. The patient has been receiving dressing changes with the assistance of Home Health on a weekly basis. The patient has no other complaints today. He denies any fever or chills. PHYSICAL EXAMINATION: VITAL SIGNS: Temperature 97.9, pulse 70, respirations 20, and blood pressure 161/81. Accu-Chek 188. EXTREMITIES: Two ulcerations are present over the right lateral lower leg, which measure approximately 1.5 x 1.3 cm and 4.5 x 4.3 cm. Granulation tissue is present within the margins of each wound. No purulent drainage is associated with either wound. No erythema of the skin surrounding either wound is present. No maceration of the skin of the periwound of either wound is noted. Edema of the right foot and lower leg is present on exam today. ASSESSMENT AND PLAN: 1. Chronic venous hypertension with ulcers. Pathology from punch biopsy on 04/14/2016 returned stasis dermatitis with ulceration. Dressing changes of Hydrofera Blue will be continued after cleansing and irrigation with the assistance of Home Health. Orders will be transmitted to Home Health for dressing changes 2 times per week as opposed to once a week. ABDs, Webril, and the 3M Coban 2 Layer Compression System will be applied in conjunction with the dressing changes of Hydrofera Blue. I will see Mr. Arambula again in 4 weeks. 2. Diabetes mellitus. The patient's Accu-Chek in clinic today is 188. The patient has been reminded that for optimal wound healing, his blood glucoses should remain below 150. 3. Peripheral vascular disease. 4. Hypertension. 5. Arthritis. 6. Lymphedema tarda. The patient has a pneumatic pump for treatment of lower extremity lymphedema. Job ID: [id number]
[2019-02-13] MEDS ORDERED: Sodium Chloride 0.9% 15 ML NEB ONE (18:00)
== END 2019-02-13 14:52 | disposition home or self-care (01) ==
LOC: WCC 14:51
PROVIDERS: ATTEND Family Medicine
DX: I87.311 Chronic venous hypertension (idiopathic) with ulcer of right lower extremity (principal); L97.919 Non-pressure chronic ulcer of unspecified part of right lower leg with unspecified severity; I73.9 Peripheral vascular disease, unspecified; M19.90 Unspecified osteoarthritis, unspecified site; I89.0 Lymphedema, not elsewhere classified
CPT/HCPCS: A4218

== ENCOUNTER 2019-03-15 15:45 | Outpatient (CLI) | payer MEDICARE, MEDICAID ==
--- NOTE | 2019-03-15 17:30 | PRG ---
DATE OF SERVICE: 03/15/2019 HISTORY: Mr. Xochitl Arambula is a very pleasant 63-year-old gentleman, who presents to the Wound Center for evaluation of 2 ulcerations of the right lower leg. The patient is presently receiving evaluation for right lower extremity arterial insufficiency by Dr. Villalta. The patient is also undergoing evaluation for venous ablation by Dr. Villalta. The patient continues to receive dressing changes with the assistance of Home Health. Mr. Arambula has no other complaints today. He denies any fever or chills. OBJECTIVE: VITAL SIGNS: Temperature 98.1, pulse 57, respirations 19, blood pressure 145/75. Accu-Chek 107. EXTREMITIES: Two ulcerations are present over the right lateral lower leg, which measure approximately 1.8 x 1.8 cm and 7.0 x 6.0 cm. Granulation tissue is present within the margins of each wound. No purulent drainage is associated with either wound. No erythema of the skin surrounding either wound is present. No maceration of the skin of the periwound of either wound is noted. Edema of the right foot and lower leg is present on exam today. ASSESSMENT AND PLAN: 1. Chronic venous hypertension with ulcers. Pathology from punch biopsy on 04/14/2016 returned stasis dermatitis with ulceration. Dressing changes utilizing Unna boots will be initiated today. These dressing changes are to be performed 2 times per week after cleansing and irrigation with the assistance of Home Health. An ABD and an Javier bandage will also be applied over the Unna boot in the region of the ulcerations. The patient has been encouraged to walk and to consume a heart healthy diet for weight loss. The patient has also been reminded to keep all followup appointments with Dr. Villalta. 2. Diabetes mellitus. The patient's Accu-Chek in clinic today is 107. The patient has been reminded that for optimal wound healing, his blood glucoses should remain below 150. 3. Peripheral vascular disease. 4. Hypertension. 5. Arthritis. 6. Lymphedema tarda. The patient has a pneumatic pump for treatment of lower extremity lymphedema. Job ID: [id number]
[2019-03-15] MEDS ORDERED: Sodium Chloride 0.9% 15 ML NEB ONE (18:00)
== END 2019-03-15 15:46 | disposition home or self-care (01) ==
LOC: WCC 15:45
PROVIDERS: ATTEND Family Medicine
DX: I87.311 Chronic venous hypertension (idiopathic) with ulcer of right lower extremity (principal); E11.622 Type 2 diabetes mellitus with other skin ulcer; L97.919 Non-pressure chronic ulcer of unspecified part of right lower leg with unspecified severity; I73.9 Peripheral vascular disease, unspecified; I10 Essential (primary) hypertension; I89.0 Lymphedema, not elsewhere classified; M19.90 Unspecified osteoarthritis, unspecified site
CPT/HCPCS: 29581; A4218

== ENCOUNTER 2019-04-12 09:32 | Outpatient (CLI) | payer MEDICARE, MEDICAID ==
[~2019-04-12 09:32] MED LIST: Sodium Chloride 0.9% 15 ML NEB ONE
--- NOTE | 2019-04-12 09:54 | PRG ---
DATE OF SERVICE: 04/12/2019 SUBJECTIVE: Mr. Xochitl Arambula is a very pleasant 63-year-old gentleman, who presents to the wound center for evaluation of 2 ulcerations of the right lower leg. The patient is presently undergoing evaluation for venous ablation by Dr. Villalta. The patient states that he was told at the time of his last visit at [facility] that his arterial flow is adequate, but that he may need a procedure to treat his venous insufficiency. The patient is presently receiving dressing changes with the assistance of Home Health, specifically an Unna boot 2 times per week. The patient has no other complaints today. He denies any fever or chills. PHYSICAL EXAMINATION: VITAL SIGNS: Temperature 97.8, pulse 61, respirations 20, and blood pressure 164/76. Accu-Chek 128. EXTREMITIES: One large wound, which has divided into multiple smaller wounds, is present over the right lateral lower leg. The largest wound measures approximately 5.2 x 5.2 cm. Granulation tissue is present within the margins of each wound. No purulent drainage is associated with any of the wounds. No erythema of the skin surrounding any of the wounds is present. No maceration of the skin of the periwound of any of the wounds is noted. No significant edema of the right foot or lower leg is present on exam today. ASSESSMENT AND PLAN: 1. Chronic venous hypertension with ulcers. Pathology from punch biopsy on 04/14/2016 returned stasis dermatitis with ulceration. Dressing changes utilizing Unna boots will be continued 2 times per week after cleansing and irrigation with the assistance of Home Health. An ABD and Javier bandage will be applied over the Unna boot in the region of the ulcerations. The patient states that he has an appointment with the dietitian in the near future. The patient has also been reminded again to keep all followup appointments with Dr. Villalta. I will see Mr. Arambula again in 4 weeks. 2. Diabetes mellitus. The patient's Accu-Chek in clinic today is 128. The patient has been reminded that for optimal wound healing, his blood glucoses should remain below 150. 3. Peripheral vascular disease. 4. Hypertension. 5. Arthritis. 6. Lymphedema tarda. Job ID: [id number]
== END 2019-04-12 09:33 | disposition home or self-care (01) ==
LOC: WCC 09:32
PROVIDERS: ATTEND Family Medicine
DX: I87.311 Chronic venous hypertension (idiopathic) with ulcer of right lower extremity (principal); E11.622 Type 2 diabetes mellitus with other skin ulcer; L97.919 Non-pressure chronic ulcer of unspecified part of right lower leg with unspecified severity; I73.9 Peripheral vascular disease, unspecified; M19.90 Unspecified osteoarthritis, unspecified site; I89.0 Lymphedema, not elsewhere classified
CPT/HCPCS: A4218

== ENCOUNTER 2019-05-10 10:54 | Outpatient (CLI) | payer MEDICARE, MEDICAID ==
--- NOTE | 2019-05-10 10:12 | PRG ---
DATE OF SERVICE: 05/10/2019 HISTORY: Mr. Xochitl Arambula is a very pleasant 63-year-old gentleman, who presents to the wound center for evaluation of 2 ulcerations of the right lower leg. The patient is currently undergoing evaluation for venous ablation by Dr. Villalta. Previously, the patient stated that he was told at the time of a visit at [facility] that his arterial flow is adequate, but that he may need a procedure to treat his venous insufficiency. The patient is currently receiving dressing changes with the assistance of home health, specifically an Unna boot 2 times per week. The patient states he has a followup appointment at [facility] on 05/16/2019. The patient has no other complaints today. He denies any fever or chills. PHYSICAL EXAMINATION: VITAL SIGNS: Temperature 97.5, pulse 54, respirations 21, blood pressure 187/88. Accu-Chek 87. EXTREMITIES: One large wound, which has divided into multiple smaller wounds, is present over the right lateral lower leg. The largest wound measures approximately 4.5 x 5.0 cm. The largest wound at the time of the patient's last visit was approximately 5.2 x 5.2 cm. The wound in its entirety measures approximately 8.5 x 4.5 cm. Granulation tissue is present within the margins of each wound. No purulent drainage is associated with any of the wounds. No erythema of the skin surrounding any of the wounds is present. No maceration of the skin of the periwound of any of the wounds is noted. A dorsalis pedis pulse is easily palpable on the right. No significant edema of the right foot or lower leg is present on exam today. ASSESSMENT AND PLAN: 1. Chronic venous hypertension with ulcers. Pathology from punch biopsy on 04/14/2016 returned stasis dermatitis with ulceration. Dressing changes utilizing Unna boots will be continued 2 times per week after cleansing and irrigation with the assistance of home health. An ABD and Javier bandage will be applied over the Unna boot in the region of the ulcerations. As stated above, the patient has a followup appointment with Dr. Villalta on 05/16/2019. I will see Mr. Arambula again in 4 weeks. 2. Diabetes mellitus. The patient's Accu-Chek in clinic today is 87. The patient has been reminded that for optimal wound healing his blood glucoses should remain below 150. 3. Peripheral vascular disease. 4. Hypertension. 5. Arthritis. 6. Lymphedema tarda. Job ID: [id number]
== END 2019-05-10 10:55 | disposition home or self-care (01) ==
LOC: WCC 10:54
PROVIDERS: ATTEND Family Medicine
DX: I87.311 Chronic venous hypertension (idiopathic) with ulcer of right lower extremity (principal); E11.622 Type 2 diabetes mellitus with other skin ulcer; L97.919 Non-pressure chronic ulcer of unspecified part of right lower leg with unspecified severity; E11.51 Type 2 diabetes mellitus with diabetic peripheral angiopathy without gangrene; I10 Essential (primary) hypertension; M19.90 Unspecified osteoarthritis, unspecified site; I89.0 Lymphedema, not elsewhere classified
CPT/HCPCS: A4218

== ENCOUNTER 2019-06-08 08:50 | Outpatient (CLI) | payer MEDICARE, MEDICAID ==
--- NOTE | 2019-06-08 09:22 | PRG ---
DATE OF SERVICE: 06/08/2019 HISTORY: Mr. Xochitl Arambula is a very pleasant 63-year-old gentleman, who presents to the wound center for evaluation of ulcerations of the right lateral lower leg. The patient has undergone evaluation for venous ablation by Dr. Villalta. Previously, the patient stated that he was told at the time of a visit at [facility] that his arterial flow is adequate, but that he may need a procedure for treatment of venous insufficiency. The patient is presently receiving dressing changes with the assistance of home health specifically and Unna boot 2 times per week. The patient states that he kept his followup appointment at [facility] on 05/16/2019. The patient states that he will be contacted in regard to the date and time of his appointment for venous ablation. The patient has no other complaints today. He denies any fever or chills. PHYSICAL EXAMINATION: VITAL SIGNS: Temperature 97.8, pulse 66, respirations 18, and blood pressure 164/73. Accu-Chek 182. EXTREMITIES: Multiple wounds are present over the right lateral lower leg. The largest wound measures approximately 4.4 x 4.2 cm. The largest wound at the time of the patient's last visit was approximately 4.5 x 5.0 cm. All of the wounds together encompass an area measuring approximately 8.3 x 4.3 cm, this area at the time of the patient's last visit was approximately 8.5 x 4.5 cm. Granulation tissue is present within the margins of each wound. No purulent drainage is associated with any of the wounds. No erythema of the skin surrounding any of the wounds is present. No maceration of the skin of the periwound of any of the wounds is noted. A dorsalis pedis pulse is easily palpable on the right. No significant edema of the right foot or lower leg is present on exam today. ASSESSMENT AND PLAN: 1. Chronic venous hypertension with ulcers, pathology from punch biopsy on 04/14/2016 returned stasis dermatitis with ulceration. Dressing changes utilizing Unna boots will be continued two times per week after cleansing and irrigation with the assistance of home health. As stated above, the patient is to be contacted regarding the date and time of his procedure. I will see Mr. Arambula again in 4 weeks. 2. Diabetes mellitus. The patient's Accu-Chek in clinic today is 182. The patient has been reminded that for optimal wound healing, his blood glucoses should remain below 150. 3. Peripheral vascular disease. 4. Hypertension. 5. Arthritis. 6. Lymphedema tarda. Job ID: [id number]
== END 2019-06-08 08:51 | disposition home or self-care (01) ==
LOC: WCC 08:50
PROVIDERS: ATTEND Family Medicine
DX: I87.311 Chronic venous hypertension (idiopathic) with ulcer of right lower extremity (principal); E11.622 Type 2 diabetes mellitus with other skin ulcer; I73.9 Peripheral vascular disease, unspecified; I89.0 Lymphedema, not elsewhere classified; M19.90 Unspecified osteoarthritis, unspecified site

== ENCOUNTER 2019-07-17 12:37 | Outpatient (CLI) | payer MEDICARE, MEDICAID ==
--- NOTE | 2019-07-17 09:20 | PRG ---
DATE OF SERVICE: 07/17/2019 HISTORY: Mr. Brian Arambula is a very pleasant 63-year-old gentleman, who presents to the Wound Center for evaluation of ulcerations of the right lateral lower leg. The patient has undergone evaluation for venous ablation by Dr. Villalta. The patient previously stated that he was told at the time of a visit at [facility] that his arterial inflow is adequate, but that he may need a procedure for treatment of venous insufficiency. The patient is currently receiving dressing changes with the assistance of Home Health, specifically an Unna boot 2 times per week. The patient states that he has a followup appointment at [facility] in the near future. The patient has no other complaints today. He denies any fever or chills. OBJECTIVE: VITAL SIGNS: Temperature 98.1, pulse 64, respirations 18, and blood pressure 178/86. Accu-Chek 209. EXTREMITIES: Multiple wounds are present over the right lateral lower leg. The largest wound measures approximately 3.8 x 3.2 cm. The dimensions of the largest wound at the time of the patient's last visit was approximately 4.4 x 4.2 cm. All of the wounds together encompass an area measuring approximately 5.8 x 4.0 cm. This area at the time of the patient's last visit measured approximately 8.3 x 4.3 cm. Granulation tissue is present within the margins of each wound. No purulent drainage is associated with any of the wounds. No erythema of the skin surrounding any of the wounds is present. No maceration of the skin of the periwound of any of the wounds is noted. A dorsalis pedis pulse is easily palpable on the right. No significant edema of the right foot or lower leg is present on exam today. ASSESSMENT AND PLAN: 1. Chronic venous hypertension with ulcers. Pathology from punch biopsy on 04/14/2016 returned stasis dermatitis with ulceration. Dressing changes utilizing Unna boots will be continued 2 times per week after cleansing and irrigation with the assistance of Home Health. As stated above, the patient states that he has a followup appointment at [facility] in the near future. I have asked the patient to return to clinic in 4 weeks. 2. Diabetes mellitus. The patient's Accu-Chek in clinic today is 209. The patient has been reminded that for optimal wound healing, his blood glucoses should remain below 150. 3. Peripheral vascular disease. 4. Hypertension. 5. Arthritis. 6. Lymphedema vidhya. Job ID: [id number]
[2019-07-17] MEDS ORDERED: Sodium Chloride 0.9% 15 ML NEB ONE (16:42)
== END 2019-07-17 12:38 | disposition home or self-care (01) ==
LOC: WCC 12:37
PROVIDERS: ATTEND Family Medicine
DX: I87.311 Chronic venous hypertension (idiopathic) with ulcer of right lower extremity (principal); E11.622 Type 2 diabetes mellitus with other skin ulcer; L97.919 Non-pressure chronic ulcer of unspecified part of right lower leg with unspecified severity; I73.9 Peripheral vascular disease, unspecified; I10 Essential (primary) hypertension; M19.90 Unspecified osteoarthritis, unspecified site; I89.0 Lymphedema, not elsewhere classified
CPT/HCPCS: A4218

== ENCOUNTER 2024-07-20 14:43 | Inpatient (IN) | payer MEDICARE, MEDICAID ==
[~2024-07-20 14:43] MED LIST changes: +Iopamidol-370 76% 500 ML MDV (1 ML CHARGE) ONE; -Sodium Chloride 0.9% 15 ML NEB ONE
[2024-07-20 15:52] LABS: #Basophils 0.08 10x3/uL (0.0-0.2); %Basophils 1.1 % (0.0-1.0); %Eosinophils 7.2 % (0.0-10.0); %Lymphocytes 22.4 % (21.0-51.0); %Monocytes 10.9 % (0.0-10.0); %Neutrophils 57.9 % (42.0-75.0); Hematocrit 32.9 % (42.0-52.0); Hemoglobin 11.9 g/dL (14.0-18.0); Mean Corpuscular HGB CONC 36.2 g/dL (32.0-36.0); Mean Corpuscular Hemoglobin 30.9 pg (27.0-31.0); Mean Corpuscular Volume 85.5 fL (78.0-98.0); Mean Platelet Volume 9.9 fL (7.4-10.4); Platelet Count 254 10x3/uL (130-400); RBC Distribution Width 17.6 % (11.5-14.5); Red Blood Cell (RBC) Count 3.85 mill/uL (4.70-6.10)
[2024-07-20 16:00] LABS: ALT (SGPT) 103 U/L (8-55); AST (SGOT) 69 U/L (5-34); Albumin 2.6 g/dL (3.4-4.8); Alkaline Phosphatase 326 U/L (40-110); Anion Gap 12 mmol/L (10-20); BUN (Urea Nitrogen) 18 mg/dL (8.4-25.7); Bilirubin, Total 14.3 mg/dL (0.2-1.2); Calc. Creatinine Clearance 0 mL/min (70-130); Carbon Dioxide 20 mmol/L (23-31); Chloride 110 mmol/L (98-107); Estimated GFR 80; Glucose 106 mg/dL (80-115); Lipase 18 U/L (8-78); Potassium 3.4 mmol/L (3.5-5.1); Protein, Total 6.6 g/dL (5.8-8.1); Sodium 139 mmol/L (136-145)
[2024-07-20 16:09] LABS: INR-International Normal Ratio 1.1; PTT 28.6 sec (22.9-36.1); Prothrombin Time 13.9 sec (12.0-14.7)
[2024-07-20] MEDS ORDERED: Calcium Carbonate 500 MG ChewTAB PO PRN (19:56)
[2024-07-20] MEDS ORDERED: Senokot S 8.6-50 MG TAB PO PRN (19:56)
[2024-07-20] MEDS ORDERED: Ondansetron PF 4 MG/2 ML Vial IVP PRN ×2 (19:56→20:15)
[2024-07-20] MEDS ORDERED: Glucagon 1 MG/ML KIT IM PRN (19:58)
[2024-07-20] MEDS ORDERED: Dextrose 5% in Water 1,000 ML IV PRN (19:58)
[2024-07-20] MEDS ORDERED: Insulin Lispro 100 UNIT/ML 10 ML VIAL SC PRN ×2 (19:58)
[2024-07-20] MEDS ORDERED: Dextrose 50% Abboject 50 ML SYRINGE SLOW IVP PRN (19:58)
[2024-07-20] MEDS ORDERED: Ondansetron ODT 4 MG TAB SL PRN (20:15)
[2024-07-20] MEDS ORDERED: Acetaminophen 325 MG TAB PO PRN (20:15)
[2024-07-20] MEDS ORDERED: Sodium Chloride 0.9% 1,000 ML IV SCH (20:15)
[2024-07-20] MEDS: Pregabalin 75 MG CAP PO SCH (22:09)
[2024-07-20] MEDS: Carvedilol 6.25 MG TAB PO SCH (22:09)
[2024-07-20] MEDS: Potassium Chloride 20 MEQ in Lactated Ringer's 1,000 ML IV SCH (23:02)
[2024-07-21 01:47] VITALS: BMI 51.9
[2024-07-21 04:51] LABS: %Basophils 1.5 % (0.0-1.0); %Eosinophils 9.6 % (0.0-10.0); %Lymphocytes 25.7 % (21.0-51.0); %Monocytes 11.9 % (0.0-10.0); %Neutrophils 50.9 % (42.0-75.0); Hematocrit 32.5 % (42.0-52.0); Hemoglobin 11.4 g/dL (14.0-18.0); Mean Corpuscular HGB CONC 35.1 g/dL (32.0-36.0); Mean Corpuscular Hemoglobin 30.6 pg (27.0-31.0); Mean Corpuscular Volume 87.4 fL (78.0-98.0); Mean Platelet Volume 9.7 fL (7.4-10.4); Platelet Count 254 10x3/uL (130-400); RBC Distribution Width 17.6 % (11.5-14.5); Red Blood Cell (RBC) Count 3.72 mill/uL (4.70-6.10)
[2024-07-21 05:17] LABS: ALT (SGPT) 94 U/L (8-55); AST (SGOT) 66 U/L (5-34); Albumin 2.4 g/dL (3.4-4.8); Alkaline Phosphatase 316 U/L (40-110); Anion Gap 12 mmol/L (10-20); BUN (Urea Nitrogen) 13 mg/dL (8.4-25.7); Bilirubin, Total 13.9 mg/dL (0.2-1.2); Calc. Creatinine Clearance 181 mL/min (70-130); Calcium 8.8 mg/dL (7.8-10.44); Carbon Dioxide 21 mmol/L (23-31); Chloride 109 mmol/L (98-107); Estimated GFR 93; Globulin 3.7 g/dL (2.4-3.5); Glucose 74 mg/dL (80-115); Potassium 3.3 mmol/L (3.5-5.1); Protein, Total 6.1 g/dL (5.8-8.1); Sodium 139 mmol/L (136-145)
[2024-07-21 05:32] LABS: Bilirubin, Direct 11.2 mg/dL (0.1-0.3); Bilirubin, Total 14.3 mg/dL (0.2-1.2)
[2024-07-21] MEDS: Aspirin Chewable 81 MG TAB PO SCH (09:01)
[2024-07-21] MEDS: Potassium Chloride 20 MEQ TAB PO SCH (09:02)
[2024-07-21] MEDS: Escitalopram Oxalate 10 mg Tablet PO SCH (09:02)
[2024-07-21] MEDS ORDERED: Electrolyte Replacement Protocol 1 EACH FS SCH (09:45)
[2024-07-21] MEDS ORDERED: Electrolyte Replacement Protocol FS PRN (10:00)
[2024-07-21] MEDS: cefTRIAXone\\ROCEPHIN 1 GM in Sodium Chloride 0.9% 100 ML IVPB SCH (10:59)
[2024-07-21] MEDS: Potassium Chloride 20 MEQ in Premix 1 BAG IVPB SCH (11:01)
[2024-07-21] MEDS: Morphine 2 MG/ML VIAL SLOW IVP SCH (11:25)
[2024-07-21 17:40] LABS: Potassium 3.8 mmol/L (3.5-5.1)
[2024-07-21 20:56] VITALS: BP 136/71
[2024-07-21 23:57] VITALS: TEMP 97.7
== END 2024-07-21 22:55 | disposition short-term general hospital (02) | DRG 445 ==
LOC: SUATTDRO 14:43 → ERS 14:43 → SURG B 19:57
PROVIDERS: ADMIT Internal Medicine; ATTEND Family Medicine
DX: K83.8 Other specified diseases of biliary tract (principal); I13.0 Hypertensive heart and chronic kidney disease with heart failure and stage 1 through stage 4 chronic kidney disease, or unspecified chronic kidney disease; R17 Unspecified jaundice; I50.32 Chronic diastolic (congestive) heart failure; Z68.43 Body mass index [BMI] 50.0-59.9, adult; I25.10 Atherosclerotic heart disease of native coronary artery without angina pectoris; E78.5 Hyperlipidemia, unspecified; E66.9 Obesity, unspecified; I48.91 Unspecified atrial fibrillation; N18.9 Chronic kidney disease, unspecified; F39 Unspecified mood [affective] disorder; R91.1 Solitary pulmonary nodule; E11.22 Type 2 diabetes mellitus with diabetic chronic kidney disease; Z79.01 Long term (current) use of anticoagulants; Z79.899 Other long term (current) drug therapy; Z79.4 Long term (current) use of insulin; Z79.82 Long term (current) use of aspirin; Z98.61 Coronary angioplasty status
CPT/HCPCS: 36415; 36416; 74177; 80053; 82247; 83690; 85025; 85610; 85730; 93005; J0696; J1815; J3480; J7030; J7120